=== PATIENT | female | born 2000 | race Caucasian/White ===

== ENCOUNTER 2021-10-10 17:21 | Emergency (ER) | payer BC, SELFPAY ==
[2021-10-10 17:29] VITALS: BP 129/78; PULSE 92; RESP 15; TEMP 36.8; O2SAT 100
--- NOTE | 2021-10-10 18:42 | ED.GENADUL_ITS ---
Discharge Plan Disposition Patient Disposition: HOME Discharge Details Clinical Impression: Acute radicular low back pain Primary Care Provider: Charlee,Local ED Provider: Gold Stubbs Home Meds and New Rx's Prescriptions: Continued sertraline 50 mg Tablet 50 mg PO DAILY RF: 0 drospirenone-ethinyl estradiol [TI (28)] 3-0.02 mg Tablet 1 tab PO DAILY RF: 0 Discontinued ibuprofen [IBU-200] 200 mg Tablet 400 mg PO Q6H PRNRF: 0 Discharge Instructions Instructions: Acute Low Back Pain (ED), Lumbar Radiculopathy (ED) Additional Instructions: Please avoid activities that worsen pain. No bending, lifting, or twisting until symptoms completely resolved. Please take ibuprofen over the counter. Take 600mg by mouth every 6 hours as needed for pain. Please take acetaminophen (tylenol) - 650mg every 6 hours by mouth as needed for pain. Use lidocaine patches. These are [id number], dose according to label. Please contact your primary care physician to arrange follow-up. Return to the ER immediately for any worsening or new concerning symptoms. Medical Decision Making 21-year-old female here with left low back pain that started this morning and radiates down her lateral left leg. No recent injury. No bowel or bladder dysfunction. Patient neurologically intact. Tender right lumbar paraspinal. Suspect lumbar disc herniation with radiculopathy. Plan to treat with ibuprofen, Tylenol, lidocaine patch. Usual customary discharge instructions were reviewed with patient including return to ED precautions. HPI General Mode of arrival: ambulatory . Date/Time Provider Initiated Documentation: 10/10/21 17:36 . Limitations to Documentation: no limitations . Information obtained by: patient . HPI Narrative: 21-year-old female presents with chief complaint of back pain. Patient notes pain in left lower back radiating down her left lateral leg that started this morning when she woke up. Pain is moderate and described as a radiating burning discomfort. She does not recall any specific injury. No associated numbness or tingling. No associated weakness. No bowel or bladder dysfunction Related Data Home Medications Medication Instructions Recorded Confirmed drospirenone-ethinyl estradiol 1 tab PO DAILY 10/10/21 10/10/21 [TI (28)] sertraline 50 mg PO DAILY 10/10/21 10/10/21 Allergies Allergy/AdvReac Type Severity Reaction Status Date / Time Sulfa (Sulfonamide Allergy Hives Unverified 10/10/21 17:26 Antibiotics) sulfamethoxazole Allergy Hives Unverified 10/10/21 17:26 [From Bactrim] trimethoprim [From Bactrim] Allergy Hives Unverified 10/10/21 17:26 General Stated Complaint: Nk/Back Pain NOAM: 3 Review of Systems Constitutional Constitutional: Denies fever(s) Musculoskeletal Musculoskeletal: Reports as per HPI Integumentary/Breasts Skin/Breast: Denies rash Neurologic Neurologic: Reports as per HPI PFSH All Active Problems Acute radicular low back pain (Acute) Social History Smoking/Tobacco Use Status: Never Smoking risk assessment performed?: Yes Alcohol Intake: never Drug use: Never Do you feel safe at home: Yes Do you feel safe in your relationship?: Yes Exam Const General: cooperative and no acute distress HENMT Mouth: moist mucous membranes Eyes Conjunctivae: normal conjunctivae Neck Neck: trachea midline and supple Resp Auscultation: clear to auscultation bilaterally, no rales, no rhonchi and no wheezes Cardio Rate: regular rate and not tachycardic Rhythm: regular rhythm GI Palpation: soft, not firm, no guarding, no masses, not rigid and nontender Back/Spine/Pelvis Back: No erythema Cervical Spine: cervical ROM normal and No cervical spinal tenderness Thoracic/Lumbar Spine: paraspinal tenderness (left lumbar), No thoracic spinal tenderness and No lumbar spinal tenderness Skin General skin exam: no rashes or lesions noted Neuro General: patient alert, patient awake, patient oriented x3 and tone normal Motor: strength 5/5 throughout (b/l LEs) Sensory Exam: no sensory deficits noted (b/l LEs) Extrem General: no edema Course Vital Signs Vital signs: Vital Signs Temperature 36.8 C 10/10/21 17:29 Pulse 92 H 10/10/21 17:29 Respiratory Rate 15 10/10/21 17:29 Blood Pressure 129/78 10/10/21 17:29 Pulse Oximetry 100 10/10/21 17:29 Temperature 36.8 C 10/10/21 17:29 Temperature Source Temporal Artery Scan 10/10/21 17:29 Pulse 92 H 02/06/22 17:29 Respiratory Rate 15 10/10/21 17:29 Respiratory Effort Non-Labored 10/10/21 17:34 Blood Pressure 129/78 10/10/21 17:29 Blood Pressure Position Sitting 10/10/21 17:29 Pulse Oximetry 100 10/10/21 17:29 Oxygen Delivery Method Room Air 10/10/21 17:29 Oxygen Flow Rate 0 10/10/21 17:29 Pain Level 7 10/10/21 17:35 Lab/Test Results Lab/Test Results: Laboratory Tests Range/Units 10/10/21 17:40 Urine Color Cancelled Urine Clarity Cancelled Urine pH Cancelled Ur Specific [place] Cancelled Urine Protein Cancelled Urine Ketones Cancelled Urine Blood Cancelled Urine Nitrite Cancelled Urine Bilirubin Cancelled Urine Urobilinogen Cancelled Ur Leukocyte Esterase Cancelled Urine Glucose Cancelled
[2021-10-10] MEDS: Ibuprofen 600 MG TAB PO (18:50)
[2021-10-10] MEDS: Acetaminophen 325 MG TAB 650 MG PO (18:50)
[2021-10-10] MEDS: Lidocaine 5% Patch 1 PATCH TP (18:51)
== END 2021-10-10 18:57 | disposition home or self-care (01) ==
PROVIDERS: Emergency Provider Student in an Organized Health Care Education/Training Program
DX: M54.50 Low back pain, unspecified (principal)
CPT/HCPCS: 81025; 99282; 81003